=== PATIENT | female | born 1950 | race Caucasian/White ===

== ENCOUNTER → 2016-12-20 | Outpatient (CLI) | payer OTHER | LOC: BMCIMAGING 08:22 | PROVIDERS: ATTEND Family Medicine | DX: Z12.31 Encounter for screening mammogram for malignant neoplasm of breast (principal) | CPT/HCPCS: G0202 ==

== ENCOUNTER → 2017-12-14 | Outpatient (CLI) | payer OTHER | LOC: BMCIMAGING 10:35 | PROVIDERS: ATTEND Family Medicine | DX: Z13.820 Encounter for screening for osteoporosis (principal); M81.0 Age-related osteoporosis without current pathological fracture ==

== ENCOUNTER → 2018-05-02 | Outpatient (CLI) | payer OTHER | LOC: FIMAGING 08:30 | PROVIDERS: ATTEND Orthopaedic Surgery | DX: Z01.818 Encounter for other preprocedural examination (principal); M17.12 Unilateral primary osteoarthritis, left knee ==

== ENCOUNTER 2018-05-18 08:05 | Observation (INO) | payer OTHER ==
--- NOTE | 2018-05-18 07:12 | PDHPUP ---
History & Physical Update H&P update statement: This history and physical update is based on an assessment of the patient which was completed after admission or registration (within 24 hours), but prior to the surgery/procedure. H&P update: H&P reviewed & patient examined, no change in patient's condition since H&P completed
[~2018-05-18 08:05] MED LIST: ROPIVACAINE 0.2% 80 MG, EPINEPHrine 0.2 MG, KETOROLAC TROMETHAMINE 30 MG in SYRINGE 0 ML IU ONE; TRANEXAMIC ACID 3,000 MG in NS (SYRINGE) 50 ML IRR ONE; TRANEXAMIC ACID 3,000 MG/50 ML BAG IRR ONE
[2018-05-18] MEDS ORDERED: DEXAMETHASONE 4 MG/ML VIAL IVP ONE (08:16)
[2018-05-18] MEDS ORDERED: ceFAZolin 2 GM/DEXTROSE 100 ML IV ONE (08:16)
[2018-05-18] MEDS ORDERED: FAMOTIDINE 20 MG TAB PO ONE (08:16)
[2018-05-18] MEDS ORDERED: LR 1,000 ML IV ONE (08:16)
[2018-05-18] MEDS ORDERED: ACETAMINOPHEN 325 MG TAB PO ONE (08:16)
--- NOTE | 2018-05-18 09:53 | PDANEPAE ---
ANE History of Present Illness OA here for L TKA ANE Past Medical History - Cardiovascular History Hx Hypertension: No Hx Arrhythmias: No Hx Chest Pain: No Hx Coronary Artery / Peripheral Vascular Disease: No Hx CHF / Valvular Disease: No Hx Palpitations: No - Pulmonary History Hx COPD: No Hx Asthma/Reactive Airway Disease: No Hx Recent Upper Respiratory Infection: No Hx Oxygen in Use at Home: No Hx Sleep Apnea: No Sleep Apnea Screening Result - Last Documented: Negative - Neurologic History Hx Cerebrovascular Accident: No Hx Seizures: No Hx Dementia: No - Endocrine History Hx Diabetes: No - Renal History Hx Renal Disorders: No - Liver History Hx Hepatic Disorders: No - Neurological & Psychiatric Hx Hx Neurological and Psychiatric Disorders: No - Cancer History Hx Cancer: No - Congenital Disorder History Hx Congenital Disorders: No - GI History Hx Gastrointestinal Disorders: No - Other Health History Other Health History: NEG - Chronic Pain History Chronic Pain: Yes (L KNEE) - Surgical History Prior Surgeries: L KNEE X2. R STAS ANE Review of Systems Review of Systems: - Exercise capacity METS (RN): 5 METS ANE Patient History - Allergies Allergies/Adverse Reactions: No Known Allergies Allergy (Verified 05/02/18 10:05) - Home Medications Home medications: home medication list seen and reviewed Home Medications: Carboxymethylcellulose 1% [Refresh Celluvisc (*)] 1 drop EACHEYE DAILY PRN 05/02 [Last Taken 1 Month Ago ~04/18/18] Ibuprofen [Motrin (*)] 200 mg PO DAILY PRN 05/02/18 [Last Taken 1 Week Ago ~] Melatonin [Melatonin 3 MG (*)] 3 mg PO HS PRN 05/02/18 [Last Taken 05/16/18] - NPO status NPO Status: no food or drink >8 hours NPO Since - Liquids (Date): 05/18/18 NPO Since - Liquids (Time): 06:50 NPO Since - Solids (Date): 05/17/18 NPO Since - Solids (Time): 19:00 - Anes Hx Anes Hx: no prior problems - Smoking Hx Smoking Status: Never smoked - Alcohol Use Alcohol Use: Occasionally - Family Anes Hx Family Anes Hx: none Family Hx Anesthesia Complications: NEG ANE Labs/Vital Signs - Vital Signs Blood Pressure: 127/83 Heart Rate: 71 Respiratory Rate: 14 O2 Sat (%): 96 Height: 167.64 cm Weight: 63.503 kg ANE Physical Exam - Airway Neck exam: FROM Mallampati Score: Class 2 Mouth exam: normal dental/mouth exam - Pulmonary Pulmonary: no respiratory distress, clear to auscultation - Cardiovascular Cardiovascular: regular rate and rhythym, no murmur, rub, or gallop - ASA Status ASA Status: II ANE Anesthesia Plan Anesthesia Plan: GA with mask, spinal Regional Anesthesia: single shot NB, adductor canal FNB Total IV Anesthesia: Yes
[2018-05-18] MEDS ORDERED: MIDAZOLAM 2 MG/2 ML VIAL IVP ONE (09:54)
[2018-05-18] MEDS ORDERED: PROPOFOL/EMULSION 500 MG/50 ML BOTTLE IV ONE (10:00)
[2018-05-18] MEDS ORDERED: ROPIVACAINE HCL 150 MG/30 ML INJ ONE (11:01)
[2018-05-18] MEDS ORDERED: ACETAMINOPHEN 500 MG TAB PO PRN (11:11)
[2018-05-18] MEDS ORDERED: fentaNYL 100 MCG/2 ML INJ IVP PRN (11:11)
[2018-05-18] MEDS ORDERED: DIAZEPAM 5 MG/ML 1 ML SYR IVP PRN (11:11)
[2018-05-18] MEDS ORDERED: DEXAMETHASONE 4 MG/ML VIAL IVP PRN (11:11)
[2018-05-18] MEDS ORDERED: oxyCODONE IR 5 MG TAB PO PRN ×2 (11:11→11:41)
[2018-05-18] MEDS ORDERED: NALOXONE HCL 0.4 MG/ML INJ IVP PRN (11:11)
[2018-05-18] MEDS ORDERED: HYDROmorphONE/DILAUDID 2 MG/ML INJ IVP PRN (11:11)
[2018-05-18] MEDS ORDERED: HYDROCODONE/APAP 5/325 TAB PO PRN (11:11)
[2018-05-18] MEDS ORDERED: BISACODYL 10 MG SUPP PR PRN (11:41)
[2018-05-18] MEDS ORDERED: METOCLOPRAMIDE 10 MG/2 ML VIAL IVP PRN (11:41)
[2018-05-18] MEDS ORDERED: PROMETHAZINE HCL 25 MG/ML INJ IVP PRN (11:41)
[2018-05-18] MEDS ORDERED: MAGNESIUM HYDROXIDE 30 ML UDCUP PO PRN (11:41)
[2018-05-18] MEDS ORDERED: DIPHENOXYLATE/ATROPINE LOMOTIL 1 TAB PO PRN (11:41)
[2018-05-18] MEDS ORDERED: TEMAZEPAM 15 MG CAP PO PRN (11:41)
[2018-05-18] MEDS ORDERED: diphenhydrAMINE 25 MG CAP PO PRN (11:41)
[2018-05-18] MEDS ORDERED: LACTULOSE 20 GM/30 ML UDCUP PO PRN (11:41)
[2018-05-18] MEDS ORDERED: POLYETHYLENE GLYCOL 3350 17 GM PKT PO PRN (11:41)
[2018-05-18] MEDS ORDERED: ONDANSETRON 4 MG/2 ML VIAL IVP PRN (11:41)
[2018-05-18] MEDS ORDERED: ONDANSETRON DISINTEGRATING 4 MG TAB PO PRN (11:41)
[2018-05-18] MEDS ORDERED: CYCLOBENZAPRINE 10 MG TAB PO PRN (11:41)
[2018-05-18] MEDS ORDERED: PROMETHAZINE HCL 25 MG SUPPR PR PRN (11:41)
--- NOTE | 2018-05-18 11:41 | POSTOPPROG ---
Post Op Note Date of Operation: 05/18/18 Surgeon: Loren Cai Bit Gatherer: Letty Cai PAC Anesthesiologist: Cheryl Anesthesia: Spinal Pre-op Diagnosis: left knee OA Post-op Diagnosis: same Indication: left knee pain Procedure: left TKA, robot assisted Findings: severe left knee OA Inf/Abcess present in the surg proc area at time of surgery?: No EBL: 50-100
[2018-05-18] MEDS ORDERED: Carboxymethylcellulose 1% [Refresh Celluvisc (*)] 1 DROP EACHEYE PRN (11:43)
--- NOTE | 2018-05-18 11:50 | POSTANESTH ---
Post Anesthetic Evaluation Cardiovascular Status: Normal, Stable, Similar to Pre-Op Cond Respiratory Status: Normal, Stable, Similar to Pre-op Cond. Level of Consciousness/Mental Status: Can Participate in Eval, Alert and Oriented Pain Control: Adequate, Prn Tx Ordered Nausea/Vomiting Control: Adequate, Prn Tx Ordered Complications Possibly Related to Anesthesia: None Noted
[2018-05-18] MEDS ORDERED: LR 1,000 ML IV SCH (12:00)
[2018-05-18] MEDS: ACETAMINOPHEN 325 MG TAB PO SCH ×3 (14:46→23:41)
[2018-05-18] MEDS: ceFAZolin 2 GM/DEXTROSE 100 ML IV SCH (18:14)
[2018-05-18] MEDS: SENNOSIDES/DOCUSATE SODIUM TAB PO SCH (21:38)
[2018-05-18] MEDS: ASPIRIN 81 MG CHEWABLE TAB PO SCH (21:38)
[2018-05-18] MEDS: FAMOTIDINE 20 MG TAB PO SCH (21:39)
[2018-05-19] MEDS: ceFAZolin 2 GM/DEXTROSE 100 ML IV SCH (02:50)
--- NOTE | 2018-05-19 03:36 | GOP ---
DATE OF OPERATION: 05/18/2018 SURGEON: Debi Cai MD CONFECTIONERY LABORATORY MANAGER: GOMEZ Rothman. ANESTHESIA: Spinal. PREOPERATIVE DIAGNOSIS: Left knee osteoarthritis. POSTOPERATIVE DIAGNOSIS: Left knee osteoarthritis. PROCEDURE PERFORMED: Left total knee arthroplasty with computer navigation, robotic assist. FINDINGS: ESTIMATED BLOOD LOSS: 30 cc INDICATIONS: The patient is a 67-year-old female with severe and progressive pain and deformity of t he left knee unresponsive to conservative care. The risks and benefits of surgical intervention were explained in detail. DESCRIPTION OF PROCEDURE: The patient was brought to the operative room and placed on the table in t he supine position. Spinal anesthesia was induced without difficulty. A pneumatic tourniquet was appl ied about the left proximal thigh, and the leg was prepped and draped in a sterile fashion. The leg h older was applied. After exsanguination by elevation the tourniquet was inflated to 250 mmHg. Incision was made anterior medial from the tibial tuberosity to a point 2 cm proximal to the superior pole of the patella. Medial parapatellar arthrotomy was carried out from the superior pole of the pa tella and posteriorly in line with the fibers of the Type II VMO. The medial collateral ligament was elevated and the infrapatellar fat pad was resected. Severe tricompartmental osteoarthritis. The patella was everted and the articular surface was excised. A 35 mm patellar button was placed. Attention was turned first to the distal aspect of the femur. After exposure of the femur, 2 half pi ns were placed for fixation of the femoral array. In a similar fashion, 2 pins were placed anteromed ial on the tibia for fixation of the tibial array. External land marking and registration of the hip center was performed without difficulty. Internal femoral and tibial registration was carried out w ithout difficulty and the femoral and tibial checkpoints were placed and verified for accuracy. Attention was turned to the femur. The foot print for the size 6 femoral component was cut with the saw using the [employer] robotic system and verified for accuracy against the CT based plan. In a similar f ashion, the saw was used to cut the footprint for the size 5 tibial component using the [employer] system an d verified for accuracy against the CT based plan. The tibial articular surface was excised without d ifficulty, followed by the intercondylar box cut. The knee was extended and the remnants of the medial and lateral meniscus were excised. The posterior capsule was injected with ropivacaine, epinephrine and Toradol. A size 5 tibial tray was positioned . Trial reduction was then carried out. There was excellent range of motion, alignment, and stability using the 5 x 9 mm polyethylene. All trials were then removed. The joint was thoroughly irrigated and carefully dried. The press-fit c omponents were implanted. The permanent 5 x 9 mm polyethylene was placed without difficulty. The tourniquet was deflated and all bleeders were coagulated. The wound was thoroughly irrigated and closed using interrupted sutures of 2-0 Vicryl for the joint capsule. The subcu was closed with 3-0 V icryl and the skin with 4-0 Monocryl. Dermabond and Steri-Strips were applied followed by a compress rafia dressing. The patient was then moved from the operating room to the recovery room in good conditi on, having tolerated the procedure well. /[id number]/MODL
[2018-05-19] MEDS: ACETAMINOPHEN 325 MG TAB PO SCH ×2 (05:24→14:04)
[2018-05-19 07:58] VITALS: BP 107/65
[2018-05-19] MEDS: ASPIRIN 81 MG CHEWABLE TAB PO SCH (08:39)
[2018-05-19] MEDS: FAMOTIDINE 20 MG TAB PO SCH (08:39)
[2018-05-19] MEDS: SENNOSIDES/DOCUSATE SODIUM TAB PO SCH (08:39)
--- NOTE | 2018-05-19 10:54 | SOAPPROG ---
SOAP Progress Note Assessment/Plan: Assessment: Patient is doing well POD 1 s/p L TKA Pain management: pain is well controlled on oral pain meds. VTE ppx: recommend aspirin daily for 3 weeks, cont PREETHI and SCDs D/c planning:patient has done much better than anticipated. Patient is stable, BP stable, pain well controlled and patient is eager for discharge to home. May d/c to home today pending release from PT postop urinary retention: straight cath'd yesterday, resolved today. patient fell yesterday while going to the restroom: denies pain with weightbearing, denies falling on knee. Encouraged patient to use the FWW for at least 7 days. Plan: 05/19/18 10:53 Subjective: patient is doing well, denies SOB, chest pain and N/v Objective: Vital Signs Temp Pulse Resp BP Pulse Ox 36.9 C 71 15 107/65 96 05/19/18 07:57 05/19/18 07:57 05/19/18 07:57 05/19/18 07:57 05/19/18 07:57 Laboratory Results 05/19/18 04:50 05/18/18 05/19/18 05/20/18 05:59 05:59 05:59 Intake Total 1670 400 Output Total 3250 400 Balance -1580 0 LLE: incision dressing is clean and dry, NVi, +pf/df ICD10 Worksheet Patient Problems: Problems Problem Status Onset Primary localized osteoarthritis of left knee Acute
--- NOTE | 2018-05-19 11:28 | GDS ---
ADMISSION DIAGNOSIS: Left knee osteoarthritis. DISCHARGE DIAGNOSIS: Left knee osteoarthritis. PROCEDURE: Left total knee arthroplasty. VTE PROPHYLAXIS: Recommend aspirin 81 mg twice daily for 4 weeks. BRIEF DESCRIPTION OF HOSPITAL STAY: Patient was admitted for an elective joint arthroplasty. The pa peyton tolerated the procedure well and has passed physical therapy. The patient was given appropriat e antibiotic prophylaxis and venous thromboembolism prophylaxis. The patient's pain was well control led on oral pain medication, patient was holding down food, and had urinated. Decision was made to d ischarge the patient. The patient was given post-operative prescriptions pre-operatively. PLAN: Follow up as scheduled in Dr. Cai's office, June 07. /[id number]/MODL
== END 2018-05-19 14:26 | disposition home or self-care (01) ==
LOC: F3N 08:05 → INTOOBSV 08:05 → F3N 13:41
PROVIDERS: ADMIT Orthopaedic Surgery; ATTEND Orthopaedic Surgery
DX: M17.12 Unilateral primary osteoarthritis, left knee (principal); R33.9 Retention of urine, unspecified; Z82.49 Family history of ischemic heart disease and other diseases of the circulatory system; Z96.641 Presence of right artificial hip joint
CPT/HCPCS: 27447; 73560; 88311; 97110; 97116; 97161; C1776; G8978; G8979; G8980; J0171; J0690; J1100; J1885; J2250; J2704; J2795

== ENCOUNTER → 2018-11-13 | Outpatient (CLI) | payer OTHER | LOC: BMCIMAGING 08:40 ==